=== PATIENT | male | born 1965 | race Caucasian/White ===

== ENCOUNTER 2016-09-02 20:04 | Emergency (ER) | payer BC, OTHER ==
[~2016-09-02] VITALS: Ht 182.9 cm; Wt 110.0 kg
[~2016-09-02 20:04] MED LIST: LEVO200T PO; LEVO25TA PO; MULT-506 PO; SULF800T23 PO
[2016-09-02 20:24] VITALS: TEMP 36.5; Ht 182.9 cm; Wt 110.0 kg
[2016-09-02] MEDS ORDERED: OMEG10007 PO (20:51)
--- NOTE | 2016-09-02 20:55 | EMERGENCY ROOM VISIT NOTE ---
History First contact with patient: 20:40 Chief Complaint: OTHER COMPLAINT Stated Complaint: TORN HERNANDEZ - TINGLING IN FINGERS History of Present Illness The patient is a 51 year old male who presents to the Emergency Room via private vehicle with complaints of "torn hernandez-tingling in fingers". The patient states that 1 hour prior to arrival, he was bench pressing on the [employer] machine while at [employer]. He states that he was pressing up on the weight bar when he developed a burning in his left anterior chest that radiated into his left arm. He states that it hurts to press with the left arm now. He states that he recently had a stress test, which was excellent and denies any chest pain, shortness of breath or heart history at this time. He rates the anterior left chest pain as a 6/10. Review of Systems A complete 6-point Review of Systems was discussed with the patient, with pertinent positives and negatives listed in the History of Present Illness. All remaining Review of Systems questions can be considered negative unless otherwise specified. Past Medical/Surgical History No pertinent past medical history at this time. Family History No pertinent Family history at this time. Social History Smoking Status: Never Smoker Drug Use: none Occupation Status: employed Current/Historical Medications Scheduled Fish Oil (Quantico-3), 2,400 MG PO QAM Levothyroxine Sodium (Synthroid), 25 MCG PO DAILY Levothyroxine Sodium (Synthroid), 200 MCG PO DAILY Multivitamin (Multivitamin), 1 TAB PO DAILY Allergies Coded Allergies: No Known Allergies (Unverified , 09/02/16) Physical Exam Vital Signs Date Time Temp Pulse Resp B/P Pulse Ox O2 Delivery O2 Flow Rate FiO2 09/02/16 21:17 91 18 158/107 97 Room Air 09/02/16 20:24 36.5 91 20 142/93 95 Room Air Physical Exam VITAL SIGNS - Vital signs and nursing notes were reviewed. Patient is afebrile , slightly hypertensive at 142/93, nontoxic tachycardic and is saturating well on room air 95%. GENERAL 51 -year-old male appearing his stated age who is in no acute distress. Communicates well with provider and answers questions appropriately. SKIN - Without rashes. No breaks in the integument. There is evidence of a palpable lump in the left anterior chest overlying the pectoralis major. HEAD - NC/AT. LUNGS - Chest wall symmetric without accessory muscle use, intercostals retractions, or central cyanosis. Normal vesicular breath sounds CTA B/L. No wheezes, rales, or rhonchi appreciated. CARDIAC - RRR with S1/S2. No murmur, rubs, or gallops appreciated. MUSCULOSKELETAL: There is tenderness to palpation overlying the left anterior chest over the location of the pectoralis major. The sternal head insertion location of the pectoralis major at the bicipital groove of the humerus does appear to be detached upon physical examination, with tenderness pinpoint dislocation. With the patient reacting the bench press against my resistance, there is evidence of muscle disruption at the superior lateral most portion of the pectoralis major at its insertion point. There is exquisite tenderness upon this. EXTREMITIES - No clubbing or peripheral cyanosis. No pretibial edema present. +3 /5 pulse in the left upper extremity. +5/5 strength noted in UE/LE bilaterally. NEUROLOGIC - Cranial nerves II through XII grossly intact. No neurologic deficits appreciated in the left upper extremity. Medical Decision & Procedures Medical Decision Patient was seen and evaluated as above. After obtaining a thorough history and physical examination I was initially concerned for heart conditions, however the patient declined a heart workup stated he knows this is not his heart, and is concerned he may have torn his pectoralis major muscle. After the subjective portion of the examination, objectively I was able to see that there was a disruption of the pectoralis major, particularly at the insertion at the location of the humerus. When the patient flex the pectoralis major there was evidence of asymmetry with comparison to the right. There was also a palpable bump/mass in the left anterior chest that fits with the diagnosis of a partially torn or torn pectoralis major. I do not feel any imaging would be beneficial and this was discussed with the patient was also in agreement. He was informed that it is best to place him in a sling at this time to help with the left arm to help calm down the area as well as to use ice over the area. He declined any pain medication. He was provided the number for orthopedic surgeon to follow-up with. He was educated upon worrisome symptoms which to return, he had questions answered prior to discharge, and was discharged home in good condition. I do not suspect any cardiac abnormality, and the patient also declined any workup respectively. In the evaluation and treatment of this patient the following differential diagnoses were entertained: DC, PE, pectoralis major tear, muscle strain, pectoralis major detachment, among others. Impression Primary Impression: pectoralis muscle injury Departure Information Dispostion Home / Self-Care Condition GOOD Referrals Ty Mendiola M.D. (PCP) Truong Sainz, DO Patient Instructions My [facility] Additional Instructions You have been treated in the Emergency Department for Shoulder Pain/left pectoralis muscle injury For pain control, you can use the following [id number] medicines (if >12 yo): - Regular strength (325mg/tab) Tylenol (acetaminophen) 2 tabs every 4-6 hours as needed. Do not exceed 12 tablets in a 24 hour period. Avoid taking more than 4 grams (4000 mg) of Tylenol per day. This includes any other sources of acetaminophen you may take on a regular basis. - Regular strength (200 mg/tab) Advil (ibuprofen) 1-2 tabs every 4-6 hours as needed. Do not exceed a dose of 3200 mg per day. If this is a recent injury (<24 hrs), ice can be applied to the area of pain for the first 3 days to help decrease pain and inflammation. You have been provided the number for an Orthopaedic Surgeon. You should call this number as soon as possible to establish a follow-up visit from today's Emergency Department visit. Keep the shoulder brace/sling in place until evaluated by Orthopedics. Continue to perform range of motion exercises several times per day to help prevent the development of a "frozen shoulder". Please refrain from heavy lifting of the left upper extremity until cleared by orthopedics. Return to the Emergency Department if your current symptoms worsen despite treatment course outlined above, or if you develop any of the following symptoms : intractable pain despite aforementioned treatment course or new onset of numbness or tingling of the arm.
[2016-09-02 21:17] VITALS: BP 158/107; PULSE 91; O2SAT 97
[2016-09-12] MEDS ORDERED: OXYC-57 PO (08:40)
[2016-09-12] MEDS ORDERED: KETO10TA PO (08:40)
== END 2016-09-02 21:18 | disposition home or self-care (01) ==
LOC: C.EDB 20:07 → C.EDD 21:18
DX: S29.001A Unspecified injury of muscle and tendon of front wall of thorax, initial encounter (principal); X58.XXXA Exposure to other specified factors, initial encounter

== ENCOUNTER → 2016-09-05 | Outpatient (CLI) | payer OTHER ==
[~2016-09-05] MED LIST changes: +KETO10TA PO; +OMEG10007 PO; +OXYC-57 PO; -SULF800T23 PO
--- NOTE | 2016-09-06 13:28 | DIAGNOSTIC IMAGING REPORT ---
MRI OF THE LEFT SHOULDER; MRI OF THE CHEST CLINICAL HISTORY: Left shoulder pain. Clinical concern for pectoralis muscle tear. COMPARISON STUDY: No priors. TECHNIQUE: MRI of the left shoulder was performed utilizing various T1 and T2 weighted sequences in the axial, sagittal, coronal planes. IV contrast was not administered for this examination. MRI of the left chest wall was also performed to assess the pectoralis muscle. Note that interpretation is suboptimal without plain film correlate. FINDINGS: Rotator cuff: The supraspinatus and intraspinous tendons are preserved. The teres minor and subscapularis tendons are intact. There is no subacromial or subdeltoid bursal fluid. Mild productive change is seen at the acromioclavicular joint. Biceps tendon: The long head of the biceps tendon is normal in signal intensity and located within the bicipital groove. The anchor is maintained. Labrum: Grossly intact. Pectoralis tendon: There is a full-thickness tear through the mid to distal left pectoralis tendon with approximately 4.5 cm of musculotendinous retraction. There is trace surrounding hemorrhage as well intramuscular edema/grade 2 strain of the left pectoralis. A few fibers of the clavicular head tendon may remain intact. Shoulder joint: There is trace joint effusion. The articular cartilage over the glenoid is well maintained. Mild arthritic change is seen in the anterior glenoid. There is no MRI evidence of fracture. Musculature and soft tissues: The musculature of the shoulder is normal in bulk and signal intensity. No atrophy is seen. IMPRESSION: 1. There is full-thickness rupture of the mid to distal left pectoralis tendon with musculotendinous retraction, trace surrounding hemorrhage, and intramuscular edema/strain as detailed above. 2. The rotator cuff is intact. 3. Mild arthritic change is noted in the anterior glenoid. Electronically signed by: Glen Ramey M.D. 09/06/2016 1:27 PM Dictated Date/Time: 09/05/2016 5:15 PM
== END | disposition home or self-care (01) ==
LOC: C.MRIBC 15:49
PROVIDERS: ATTEND Orthopaedic Surgery
DX: M25.512 Pain in left shoulder (principal)

== ENCOUNTER → 2016-09-09 | Outpatient (CLI) | payer OTHER ==
[2016-09-09 13:17] LABS: BASO % 0.4 %; BASO ABS # 0.03 K/uL (0-0.2); COMPLETE YES; HEMATOCRIT 48.8 % (42-52); IG% 0.3 %; LYMPH % 22.8 %; LYMPH ABS # 1.73 K/uL (1.2-3.4); MEAN CELL VOLUME 89.9 fL (80-100); MEAN CORPUSCULAR HEMOGLOBIN 32.8 pg (25-34); MEAN CORPUSCULAR HGB CONC 36.5 g/dl (32-36); MEAN PLATELET VOLUME 10.2 fL (7.4-10.4); MONO % 8.6 %; NEUT % 64.9 %; PLATELET COUNT 283 K/uL (130-400); RED BLOOD COUNT 5.43 M/uL (4.7-6.1); WHITE BLOOD COUNT 7.59 K/uL (4.8-10.8)
[2016-09-09 14:00] LABS: BLOOD UREA NITROGEN 13 mg/dl (7-18); BUN/CREATININE RATIO 13.6 (10-20); CARBON DIOXIDE 29 mmol/L (21-32); CHLORIDE 103 mmol/L (98-107); CREATININE 0.96 mg/dl (0.60-1.40); GLUCOSE 97 mg/dl (70-99); POTASSIUM 4.3 mmol/L (3.5-5.1); SODIUM 139 mmol/L (136-145)
== END | disposition home or self-care (01) ==
LOC: C.LABBC 10:49
PROVIDERS: ATTEND Orthopaedic Surgery
DX: S29.011A Strain of muscle and tendon of front wall of thorax, initial encounter (principal); X58.XXXA Exposure to other specified factors, initial encounter

== ENCOUNTER → 2016-09-12 | Day surgery (SDC) | payer OTHER ==
[2016-09-10 15:19] VITALS: Ht 182.9 cm; Wt 109.1 kg
[~2016-09-12] VITALS: Ht 182.9 cm; Wt 109.1 kg
[~2016-09-12] MED LIST changes: +BUPIVACAINE/EPINEPHRINE 0.25% 1:200,000 30 ML VIAL ONE; +CEFAZOLIN 2000 MG/60 ML D5W IV SCH; +DEXAMETHASONE SOD INJ 4 MG/ML VIAL ONE; +DiphenhydrAMINE HCL 50 MG/ML VIAL IV PRN; +EpHEDrine SULFATE 50MG/5ML SYR ONE; +FENTANYL CITRATE INJ 50 MCG/1 ML 2 ML VIAL ONE; +GLYCOPYRROLATE INJ 0.2 MG/ML VIAL ONE; +HYDROmorphone INJ 0.5 MG/0.5 ML SYR ONE; +HYDROmorphone INJ 1 MG/ML SYR IV PRN; +KETOROLAC TROMETHAMINE 30 MG/ML VIAL IV. PRN; +KETOROLAC TROMETHAMINE 30 MG/ML VIAL ONE; +LACTATED RINGER'S 1000ML 1,000 ML IV PRN; +LACTATED RINGER'S 1000ML 1,000 ML IV SCH; +LIDOCAINE HCL 2% 2 ML VIAL (20MG/ML) ONE; +METOCLOPRAMIDE HCL INJ 5 MG/ML 2 ML VIAL IV PRN; +MIDAZOLAM HCL 1 MG/ML 2ML VIAL ONE; +NEOSTIGMINE METHYLSULFATE 5 MG/5 ML SYR ONE; +ONDANSETRON INJ 2 MG/ML 2 ML VIAL IV PRN; +ONDANSETRON INJ 2 MG/ML 2 ML VIAL ONE; +OXYCODONE/ACETAMINOPHEN 5-325 TAB PO PRN; +PROPOFOL IV EMULSION 10 MG/ML 20 ML VIAL IV ONE; +ROCURONIUM BROMIDE 10 MG/ML 5 ML VIAL ONE; +SODIUM CHLORIDE 0.9% 1000ML 1,000 ML IV SCH
--- NOTE | 2016-09-12 06:43 | History & Physical Bridge - SC ---
H&P Re-Evaluation Bridge Note: I have examined the patient, reviewed the History & Physical and in the interval since the performance of the History & Physical I have noted the following changes of clinical significance: No changes noted
--- NOTE | 2016-09-12 08:38 | [facility] Post Operative Brief Note ---
Immediate Operative Summary Operative Date Sep 12, 2016. Pre-Operative Diagnosis Left Pectoralis Major Muscle Tear Post-Operative Diagnosis Same Procedure(s) Performed Left Pectoralis Major Muscle Tear Repair Surgeon Dr. Shaw Keeler Polygraph Operator Surgeon(s) Juan Miguel Mace PA-C Estimated Blood Loss 10 ML Findings as above Specimens None Complication(s) None Disposition Recovery Room / PACU
--- NOTE | 2016-09-12 08:42 | Discharge Instructions-SurgCtr ---
Discharge Instructions Date of Service Sep 12, 2016. Visit Reason for Visit: Left Pectoralis Major Muscle Tear Discharge Discharge Diagnosis / Problem: SAME ABOVE Discharge Goals Goal(s): Decrease discomfort, Improve function, Increase independence Activity Recommendations Activity Limitations: as noted below Lifting Limitations: until after follow-up appointment May Resume Sexual Activity: after follow-up appointment Anesthesia . Post Anesthesia Instructions: If you have had General Anesthesia or IV Sedation: * Do not drive today. * Resume driving when surgeon permits. * Do not make important decisions or sign legal documents today. * Call surgeon for: 1. Temperature elevations greater than 101 degrees F. 2. Uncontrollable pain. 3. Excessive bleeding. 4. Persistent nausea and vomiting. 5. Medication intolerance (nausea, vomiting or rash). * For nausea and vomiting use only clear liquids such as: tea, soda, bouillon until nausea subsides, then gradually increase diet as tolerated. * If you have any concerns or questions, call your surgeon's office. If physician is unavailable and it is an emergency, call 911 or go to the nearest emergency room. . Instructions / Follow-Up Instructions / Follow-Up MEDICATIONS: * Resume previous medications unless instructed otherwise by your surgeon. * Always take pain medication on a full stomach or with food to avoid upset stomach. * Do not drink alcohol or drive while taking narcotics. * Ibuprofen or Tylenol may be taken if narcotic not needed. SPECIAL CARE INSTRUCTIONS: __ None _X_ Keep extremity elevated and iced x 48 hours; apply ice 20-30 minutes 8-10 times/day. May remove at night. _X_ Sling (MAY REMOVE AFTER 48 HOURS ONLY TO SHOWER) _X_24 hrs/day __ Remove at night __ Shoulder Immobilizer __ 24 hrs/day __ Remove at night _X_ Dressing __ Maintain until seen in office, may shower with plastic over site _X_ Remove dressings in 24-48 hours and then may shower __ Cover incisions with band-aids after showering __ Do not remove steri-strips ONLY REMOVE THE CLEAR WRAP, AND THE WHITE SPONGES LEAVE THE ADHESIVE COVERING ON THE SKIN UNTIL SEEN IN THE OFFICE FOR FOLLOW UP ( RAQUEL) Call physician if chills or temperature rises above 102 degrees or pain unrelieved by prescribed pain medications at . . Diet Recommendations Home Diet: no limitations Fluid Restriction: None Procedures Procedures Performed: Left Pectoralis Major Muscle Tear Repair Pending Studies Studies pending at discharge: no Work Instructions Return To Work: after follow-up Lifting Limitations: NO LIFTING WITH LEFT ARM Medical Emergencies . Who to Call and When: Medical Emergencies: If at any time you feel your situation is an emergency, please call 911 immediately. . Non-Emergent Contact Non-Emergency issues call your: Primary Care Provider Call Non-Emergent contact if: you have a fever, temperature is above 101.5 . . "Provider Documentation" section prepared by Jason Mace.
--- NOTE | 2016-09-12 08:49 | OPERATIVE REPORT ---
DATE OF OPERATION: 09/12/2016 PREOPERATIVE DIAGNOSIS: Left pectoralis major rupture. POSTOPERATIVE DIAGNOSIS: Same. PROCEDURE: Open left pectoralis major repair. SURGEON: Dr. Max Shaw. RETAIL DEPARTMENT MANAGER: Matt Mace PA-C, whose assistance was necessary for retraction and helping position the arm. ANESTHESIA: General with a left interscalene nerve block. COMPLICATIONS: None. CONDITION: Stable to PACU. INDICATIONS: Mook is a pleasant 51-year-old male who presented to my office with acute left pectoralis major rupture after bench pressing. MRI confirmed the tear directly off the humeral shaft. He elected to undergo open pec major repair. PROCEDURE: On 09/12/2016 he arrived at [facility] for the above procedure. He was seen in the preoperative holding area and the operative extremity was identified and signed. He was given a preoperative antibiotic, taken back to the operating room, laid on the table in supine position and put under general anesthesia. He was then put into the beachchair position. The left shoulder was prepped and draped in sterile fashion. Time-out was done and the patient and operative extremity was properly identified. Axillary incision was made. Dissection was taken down through the fascia and a large seroma was evacuated. The sternal head of the pec major was identified. The clavicular head was still intact. The sternal head was then stitched in a Krackow fashion using three #5 FiberWire sutures and 3 FiberTapes. The FiberTape and a FiberWire from each of 3 entry points were passed through an Arthrex Pec Button. The insertion site of the sternal head of the pec major was prepared with a bur to produce bleeding cortical bone. Care was taken not to disrupt the long head of the biceps tendon. Three drill holes were made at the insertion site and the pec buttons were passed through the drill holes and flipped. A tension slide technique was used to deliver the sternal head of the pec major down to its insertion site. All sutures were then tied. This gave a very nice fixation. I was able to easily get into 30 degrees of external rotation without much tension on the repair. The wound was then irrigated and skin was closed with 3-0 Vicryl and running 3-0 V-Loc suture and a Prineo dressing. He was then placed in a soft dressing and a regular arm sling. He was then extubated, transferred to a [facility] and taken to the postanesthesia care unit in stable condition. He tolerated the procedure well. I attest to the content of the Intraoperative Record and any orders documented therein. Any exceptio ns are noted below.
[2016-09-12] MEDS: FENTANYL CITRATE INJ 50 MCG/1 ML 2 ML VIAL IV PRN ×2 (08:53→08:58)
[2016-09-12 09:57] VITALS: TEMP 37.1
--- NOTE | 2016-09-12 10:16 | Anesthesia Progress Nt - [facility] ---
Anesthesia Post Op Note Date & Time Sep 12, 2016 at 10:16 Vital Signs Pain Intensity: 5.0 Vital Signs Past 12 Hours Date Time Temp Pulse Resp B/P Pulse Ox O2 Delivery O2 Flow Rate FiO2 09/12/16 09:57 37.1 75 16 149/84 94 Room Air 09/12/16 09:47 63 20 96 09/12/16 09:47 64 20 09/12/16 09:46 36.9 80 16 120/81 96 Room Air 09/12/16 09:45 120/81 09/12/16 09:42 83 23 95 09/12/16 09:42 84 23 09/12/16 09:40 140/85 09/12/16 09:37 63 16 97 09/12/16 09:37 66 16 09/12/16 09:35 124/75 09/12/16 09:32 64 18 09/12/16 09:32 63 18 97 09/12/16 09:30 124/76 09/12/16 09:27 78 20 09/12/16 09:27 77 20 98 09/12/16 09:25 122/82 09/12/16 09:22 70 20 09/12/16 09:22 71 20 96 09/12/16 09:20 131/83 09/12/16 09:17 79 21 09/12/16 09:17 81 21 97 09/12/16 09:15 137/85 09/12/16 09:12 76 20 09/12/16 09:12 77 20 97 09/12/16 09:10 138/83 09/12/16 09:07 81 19 09/12/16 09:07 83 19 100 09/12/16 09:05 134/88 09/12/16 09:02 64 21 98 09/12/16 09:02 65 21 09/12/16 09:00 141/83 09/12/16 08:57 68 16 09/12/16 08:57 68 16 95 09/12/16 08:55 130/80 09/12/16 08:52 71 22 09/12/16 08:52 70 22 95 09/12/16 08:50 118/79 09/12/16 08:47 74 16 97 09/12/16 08:47 74 16 09/12/16 08:45 122/65 09/12/16 08:42 78 09/12/16 08:42 78 120/72 95 09/12/16 08:42 36.5 78 16 120/79 98 Mask 6 09/12/16 06:25 36.5 77 18 147/105 96 Room Air Notes Mental Status: alert / awake / arousable, participated in evaluation Pt Amnestic to Procedure: Yes Nausea / Vomiting: adequately controlled Pain: adequately controlled Airway Patency, RR, SpO2: stable & adequate BP & HR: stable & adequate Hydration State: stable & adequate Anesthetic Complications: no major complications apparent Pt doing well.
[2016-09-12 10:19] VITALS: BP 143/77; PULSE 64; O2SAT 93
== END | disposition home or self-care (01) ==
LOC: X.SURG 06:04
PROVIDERS: ATTEND Orthopaedic Surgery
DX: S43.492A Other sprain of left shoulder joint, initial encounter (principal); X50.9XXA Other and unspecified overexertion or strenuous movements or postures, initial encounter; Y93.B9 Activity, other involving muscle strengthening exercises

== ENCOUNTER → 2017-03-10 | Outpatient (CLI) | payer OTHER ==
[~2017-03-10] MED LIST changes: -BUPIVACAINE/EPINEPHRINE 0.25% 1:200,000 30 ML VIAL ONE; -CEFAZOLIN 2000 MG/60 ML D5W IV SCH; -DEXAMETHASONE SOD INJ 4 MG/ML VIAL ONE; -DiphenhydrAMINE HCL 50 MG/ML VIAL IV PRN; -EpHEDrine SULFATE 50MG/5ML SYR ONE; -FENTANYL CITRATE INJ 50 MCG/1 ML 2 ML VIAL ONE; -GLYCOPYRROLATE INJ 0.2 MG/ML VIAL ONE; -HYDROmorphone INJ 0.5 MG/0.5 ML SYR ONE; -HYDROmorphone INJ 1 MG/ML SYR IV PRN; -KETOROLAC TROMETHAMINE 30 MG/ML VIAL IV. PRN; -KETOROLAC TROMETHAMINE 30 MG/ML VIAL ONE; -LACTATED RINGER'S 1000ML 1,000 ML IV PRN; -LACTATED RINGER'S 1000ML 1,000 ML IV SCH; -LIDOCAINE HCL 2% 2 ML VIAL (20MG/ML) ONE; -METOCLOPRAMIDE HCL INJ 5 MG/ML 2 ML VIAL IV PRN; -MIDAZOLAM HCL 1 MG/ML 2ML VIAL ONE; -NEOSTIGMINE METHYLSULFATE 5 MG/5 ML SYR ONE; -ONDANSETRON INJ 2 MG/ML 2 ML VIAL IV PRN; -ONDANSETRON INJ 2 MG/ML 2 ML VIAL ONE; -OXYCODONE/ACETAMINOPHEN 5-325 TAB PO PRN; -PROPOFOL IV EMULSION 10 MG/ML 20 ML VIAL IV ONE; -ROCURONIUM BROMIDE 10 MG/ML 5 ML VIAL ONE; -SODIUM CHLORIDE 0.9% 1000ML 1,000 ML IV SCH
[2017-03-10 12:33] LABS: ALT/SGPT 48 U/L (12-78); AST/SGOT 27 U/L (15-37); BLOOD UREA NITROGEN 19 mg/dl (7-18); BUN/CREATININE RATIO 16.9 (10-20); CALCIUM 8.8 mg/dl (8.5-10.1); CARBON DIOXIDE 27 mmol/L (21-32); CHLORIDE 106 mmol/L (98-107); CHOLESTEROL 245 mg/dl (0-200); GLUCOSE 95 mg/dl (70-99); SODIUM 140 mmol/L (136-145)
[2017-03-10 12:43] LABS: ALB/GLOB RATIO 1.1 (0.9-2)
[2017-03-10 12:44] LABS: ALKALINE PHOSPHATASE 68 U/L (45-117); CHOLESTEROL/HDL RATIO 7.7; HDL CHOLESTEROL 32 mg/dl; LDL CHOLESTEROL CALCULATED 159 mg/dl; TRIGLYCERIDES 269 mg/dl (0-150); VERY LOW DENSITY LIPOPROT CALC 54 mg/dl
== END | disposition home or self-care (01) ==
LOC: C.LABBFT 07:18
PROVIDERS: ATTEND Physician Assistant Medical
DX: I10 Essential (primary) hypertension (principal); E03.9 Hypothyroidism, unspecified

== ENCOUNTER 2020-04-22 09:59 | Observation (INO) ==
[2020-04-22] MEDS ORDERED: SODIUM CHLORIDE 0.9% 1000ML 500 ML IV ONE (10:12)
[2020-04-22] MEDS ORDERED: OPTIRAY 320 125ml IV ONE (10:17)
[2020-04-22 10:22] LABS: Basophils # (auto) 0.03 K/uL (0-0.2); Basophils % (auto) 0.6 %; Eosinophils # (auto) 0.28 K/uL (0-0.5); Eosinophils % (auto) 5.2 %; Hematocrit (blood only) 44.7 % (42-52); Hemoglobin 16.1 g/dL (14.0-18.0); Immature Granulocytes # (auto) 0.01 K/uL (0.00-0.02); Immature Granulocytes % (auto) 0.2 %; Lymphocytes # (auto) 2.09 K/uL (1.2-3.4); Lymphocytes % (auto) 38.9 %; Mean Corpuscular Hemoglobin 32.9 pg (25-34); Mean Corpuscular Volume 91.2 fL (80-100); Mean Platelet Volume 10.1 fL (7.4-10.4); Monocytes # (auto) 0.34 K/uL (0.11-0.59); Monocytes % (auto) 6.3 %; Neutrophils # (auto) 2.62 K/uL (1.4-6.5); Neutrophils % (auto) 48.8 %; Platelet Count 236 K/uL (130-400); RDW Coefficient of Variation 12.1 % (11.5-14.5); RDW Standard Deviation 40.5 fL (36.4-46.3); White Blood Count 5.37 K/uL (4.8-10.8)
--- NOTE | 2020-04-22 10:22 | Emergency Department Note ---
Impression & Plan Amnesia, Brain TIA, Transient global amnesia ED Provider Note NAME: RADHA CANSECO AGE: 54 SEX: M : 1965 ARRIVES VIA: Walk-In INFORMANT: [Patient] ED PROVIDER(S): [Glen Martinez MD] First patient contact was at 10:07. CHIEF COMPLAINT: Neuro symptoms HISTORY OF PRESENT ILLNESS: The patient is a 54-year-old male states that 1 hour ago after having intercourse with his girlfriend, he lost his memory. He could not remember things that had happened in the last 24 hours. There was no headache. As per his girlfriend, his symptoms lasted 15 to 20 minutes. The patient states his memory now seems intact and he can recall events from the last [address] here, for a very brief time, his left hand was numb. That no longer is the case. No weakness in 1 arm or 1 leg. He has no chest pain or shortness of breath. No difficulty with his gait or speech. The patient states that last evening, he had a mild headache that he thought was from dehydration. This resolved with fluids and was not present when he woke up this morning. First part of his morning was normal, he had breakfast without difficulty. He was having a normal day. REVIEW OF SYSTEMS: See HPI for pertinent positives and negatives. A total of ten systems were reviewed and were otherwise negative. PMHx/PSHx: See Below SOCIAL HISTORY: See Below. PHYSICAL EXAM: GENERAL: Patient is in no acute distress. Slightly anxious. HEENT: No acute trauma, normocephalic atraumatic, mucous membranes moist, no nasal congestion, no scleral icterus. NECK: No stridor, no adenopathy, no meningismus, trachea is midline. LUNGS: Clear to auscultation bilaterally, no wheeze, no rhonchi, breath sounds equal. HEART: Without murmurs gallops or rubs, regular rate and rhythm. ABDOMEN: Soft, nontender, bowel sounds positive, no hernias, no peritonitis. EXTREMITIES: No cyanosis or edema, full range of motion of all the joints without pain or difficulty, no signs for acute trauma. NEUROLOGIC: Oriented x 3, no acute motor or sensory deficits, no focal weakness. No cerebellar deficits, no speech slur or facial droop, no extremity drift. SKIN: No rash, no jaundice, no diaphoresis. DIFFERENTIAL DIAGNOSIS: Infection, dehydration, metabolic abnormality, hypo/hyperglycemia, intracranial bleeding, stroke or TIA, transient global amnesia, electrolyte disturbance, anemia, hypoxia, cardiac sources, intracerebral event, toxicologic, neurologic, as well as other pathologies. EMERGENCY DEPARTMENT COURSE/PROCEDURES: ECG: Indication was possible stroke. The ECG shows a normal sinus rhythm with a rate of 89. There is no ST elevation, no PVCs. The QTc is 442. Continuous Cardiac Monitoring: An order was placed for continuous cardiac monitoring. The monitor shows a rate of 86 with normal sinus rhythm. Critical Care Note: I have personally spent 42 minutes of critical care time in the direct management of this patient. This includes bedside care, interpretation of diagnostic studies, and testing, discussion with consultants, patient, and family members, and other required patient management activities. This 42 minutes is in excess of all separately billable procedures. MEDICAL DECISION MAKING: There is no leukocytosis or concerning anemia. There is a normal platelet count. No coagulopathy. No significant electrolyte abnormality or kidney failure. There were a few subtle liver enzyme elevations. ECG showed a sinus r hythm, no acute ischemia. Cardiac enzyme testing x1 is not consistent with acute cardiac injury. Brain CT shows no acute bleed or mass-effect. CT angiography of the brain and neck did not show stenosis or clot. There was no aneurysm. On my exam, there was no facial droop or speech slur, no focal neurologic deficit. The patient was asymptomatic at the time of my evaluation. The patient received a 500 cc saline bolus, he has remained asymptomatic during his ED stay. Patient was aggressively managed given his presentation. A stroke alert was called. I did talk to the [facility] neurologist. As the patient was back to baseline, they did not feel a need to see the patient for an assessment. The patient certainly may have had a TIA, transient global amnesia is also a consideration. At this point, further work-up in the hospital, further observation is warranted. The patient basically needs a complete stroke work- up. I spoke to the patient, I talked with case management, the on-call hospitalist was consulted. Past Med/Surg History Medical History Hyperlipidemia Hypertension Hypothyroidism Kidney stones Osteoarthritis Surgical History History of tonsillectomy Family History Son Crohn's disease Sister Hypertension Grandmother Myocardial infarction Denies family history of Ovarian cancer Prostate cancer Breast cancer Colorectal cancer Social History Smoking Status: Never smoker Second Hand Exposure: No; Hx Alcohol Use: No Hx Substance Use: No Preferred Language: Kuwaiti Communication Ability: Effective Visual Impairment: No Limitations Hearing Ability: Normal Superintendent Communications Required: No Beliefs That Will Affect Care: None marital status: Current Living Situation: Family and Significant Other current occupational status: employed current occupation: Works at [employer] Feels Safe at Home: Yes Childhood Exposure to Second-Hand Smoke: No caffeine: Yes during the past year weight has: remained stable Dental Care, Regularly: Yes Physical Activity Frequency: Daily Seatbelt Use: always Sunscreen Use: No Assistive Devices: None Allergies Allergies Allergy/AdvReac Type Severity Reaction Status Date / Time No Known Allergies Allergy Verified 04/22/20 11:03 Home Meds Home Medications Medication Instructions Recorded Confirmed multivitamin 1 tab PO DAILY 12/08/18 04/22/20 amlodipine 2.5 mg PO DAILY 04/22/20 04/22/20 pantoprazole 40 mg PO DAILY 04/22/20 04/22/20 Previous Rx's Medication Instructions Recorded betamethasone, augmented 0.05 % 1 appln TOP BID PRN #50 gm 12/06/19 topical ointment escitalopram oxalate 10 mg tablet 10 mg PO DAILY #90 tab 02/16/20 lisinopril 20 mg tablet 20 mg PO QAM #90 tab 02/16/20 atorvastatin 40 mg tablet 40 mg PO HS #90 tab 02/22/20 levothyroxine 200 mcg tablet 200 mcg PO DAILY #90 tab 02/22/20 Results & Data (ED) Vital Signs Vital Signs - 24 hr 04/22/20 10:02 04/22/20 10:31 Temperature 36.7 C Temperature Source Oral Pulse Rate 102 H 88 Pulse Rate from SpO2 Sensor 87 Respiratory Rate 20 Respiratory Effort / Characteristics Non-Labored Respiratory Depth Normal Blood Pressure 188/101 H 144/103 H Blood Pressure Mean 130 110 Pulse Oximetry 96 96 Sepsis Recent Fever Within 48 Hours No Sepsis New/Unexplained Change in Mental Status N/A Sepsis Action Taken by Nursing No Action Required Home Medications Current Medication List: was personally reviewed by me Laboratory Data Attestation: I reviewed the patient's lab results. Result diagrams: 04/22/20 10:10 04/22/20 10:10 Lab Results 04/22/20 04/22/20 04/22/20 Range/Units 10:10 10:10 10:10 WBC 5.37 (4.8-10.8) K/uL RBC 4.90 (4.7-6.1) M/uL Hgb 16.1 (14.0-18.0) g/dL POC Hgb (14.0-18.0) g/dl Hct 44.7 (42-52) % POC Hct (42-52) % MCV 91.2 (80-100) fL MCH 32.9 (25-34) pg MCHC 36.0 (32-36) g/dL RDW Std Deviation 40.5 (36.4-46.3) fL RDW Coeff of Itz 12.1 (11.5-14.5) % Plt Count 236 (130-400) K/uL MPV 10.1 (7.4-10.4) fL Immature Gran % (Auto) 0.2 % Neut % (Auto) 48.8 % Lymph % (Auto) 38.9 % Putnam % (Auto) 6.3 % Eos % (Auto) 5.2 % Baso % (Auto) 0.6 % Neut # (Auto) 2.62 (1.4-6.5) K/uL Lymph # (Auto) 2.09 (1.2-3.4) K/uL Putnam # (Auto) 0.34 (0.11-0.59) K/uL Eos # (Auto) 0.28 (0-0.5) K/uL Baso # (Auto) 0.03 (0-0.2) K/uL Immature Gran # (Auto) 0.01 (0.00-0.02) K/uL PT 10.7 (9.0-12.0) Seconds INR 1.0 (0.9-1.1) APTT 25.6 (21.0-31.0) Seconds PTT Ratio 0.9 POC Sodium (135-144) mmol/L Sodium 141 (136-145) mmol/L POC Potassium (3.3-5.0) mmol/L Potassium 4.2 (3.5-5.1) mmol/L POC Chloride (101-112) mmol/L Chloride 109 H (98-107) mmol/L Carbon Dioxide 27 (21-32) mmol/L POC Total CO2 (24-31) mmol/L Anion Gap 5.0 (3-11) POC Anion Gap (16-25) mmol/L POC BUN (7-18) mg/dl BUN 17 (7-18) mg/dl Creatinine 1.29 (0.6-1.4) mg/dl POC Creatinine (0.6-1.3) mg/dl Est Cr Clr Drug Dosing 89.7 ml/min Est GFR ( Amer) 73.4 Est GFR (Non-Af Amer) 63.3 BUN/Creatinine Ratio 12.9 (10-20) Glucose 156 H (70-99) mg/dl POC Glucose (other) (70-99) mg/dl Calcium 8.9 (8.5-10.1) mg/dl POC Ioniz Calcium Quinten (1.12-1.32) mmol/l Magnesium 1.9 (1.8-2.4) mg/dl Total Bilirubin 1.4 H (0.2-1) mg/dl AST 48 H (15-37) U/L ALT 127 H (12-78) U/L Alkaline Phosphatase 85 (45-117) U/L Troponin I < 0.015 (0-0.045) ng/ml Total Protein 7.7 (6.4-8.2) gm/dl Albumin 3.8 (3.4-5.0) gm/dl Globulin 3.9 (2.5-4.0) gm/dl Albumin/Globulin Ratio 1.0 (0.9-2) 04/22/20 Range/Units 10:15 WBC (4.8-10.8) K/uL RBC (4.7-6.1) M/uL Hgb (14.0-18.0) g/dL POC Hgb 15.3 (14.0-18.0) g/dl Hct (42-52) % POC Hct 45 (42-52) % MCV (80-100) fL MCH (25-34) pg MCHC (32-36) g/dL RDW Std Deviation (36.4-46.3) fL RDW Coeff of Itz (11.5-14.5) % Plt Count (130-400) K/uL MPV (7.4-10.4) fL Immature Gran % (Auto) % Neut % (Auto) % Lymph % (Auto) % Putnam % (Auto) % Eos % (Auto) % Baso % (Auto) % Neut # (Auto) (1.4-6.5) K/uL Lymph # (Auto) (1.2-3.4) K/uL Putnam # (Auto) (0.11-0.59) K/uL Eos # (Auto) (0-0.5) K/uL Baso # (Auto) (0-0.2) K/uL Immature Gran # (Auto) (0.00-0.02) K/uL PT (9.0-12.0) Seconds INR (0.9-1.1) APTT (21.0-31.0) Seconds PTT Ratio POC Sodium 141 (135-144) mmol/L Sodium (136-145) mmol/L POC Potassium 4.3 (3.3-5.0) mmol/L Potassium (3.5-5.1) mmol/L POC Chloride 105 (101-112) mmol/L Chloride (98-107) mmol/L Carbon Dioxide (21-32) mmol/L POC Total CO2 24 (24-31) mmol/L Anion Gap (3-11) POC Anion Gap 17.0 (16-25) mmol/L POC BUN 18 (7-18) mg/dl BUN (7-18) mg/dl Creatinine (0.6-1.4) mg/dl POC Creatinine 1.2 (0.6-1.3) mg/dl Est Cr Clr Drug Dosing ml/min Est GFR ( Amer) Est GFR (Non-Af Amer) BUN/Creatinine Ratio (10-20) Glucose (70-99) mg/dl POC Glucose (other) 158 H (70-99) mg/dl Calcium (8.5-10.1) mg/dl POC Ioniz Calcium Quinten 1.26 (1.12-1.32) mmol/l Magnesium (1.8-2.4) mg/dl Total Bilirubin (0.2-1) mg/dl AST (15-37) U/L ALT (12-78) U/L Alkaline Phosphatase (45-117) U/L Troponin I (0-0.045) ng/ml Total Protein (6.4-8.2) gm/dl Albumin (3.4-5.0) gm/dl Globulin (2.5-4.0) gm/dl Albumin/Globulin Ratio (0.9-2) Administered Medications Discontinued Medications Sodium Chloride (Nss 1000ml) 500 mls @ 999 mls/hr IV .Q31M ONE Stop: 04/22/20 10:42 Last Infusion: 04/22/20 11:02 Dose: 0 mls/hr Documented by: [id number] Admin: 04/22/20 10:30 Dose: 999 mls/hr Documented by: [id number] Ioversol (Optiray 320 125ml) 120 ml IV ONCE ONE Stop: 04/22/20 10:18 Last Admin: 04/22/20 10:17 Dose: 120 ml Documented by: [id number] Imaging Data Radiologist's Impression: CT head/brain wo con CLINICAL HISTORY: stroke LEFT HAND NUMBNESS, HEADACHE. AMNESIA. COMPARISON STUDY: July 13, 2018 TECHNIQUE: Axial CT of the brain is performed from the vertex to the skull base. IV contrast was not administered for this examination. A dose lowering technique was utilized adhering to the principles of ALARA. CT DOSE: FINDINGS: No intra or extra-axial mass lesions are visualized. There is no CT evidence of acute cortical infarction. There is no evidence of midline shift. There is no acute hemorrhage. No calvarial fractures are visualized. There is no evidence of pathologic ventricular dilatation. There is pansinus mucosal thickening IMPRESSION: No acute intracranial findings CT angio neck with con CLINICAL HISTORY: stroke COMPARISON STUDY: No previous studies for comparison. TECHNIQUE: CT angiography was performed from the aortic arch to the skull base. MIP imaging was performed. The patient was scanned in a dynamic helical fashion during intravenous administration of 120 cc of Optiray 320. A dose lowering technique was utilized adhering to the principles of ALARA. CT DOSE: 1395.39 mGy.cm Technique: CT angiogram of the carotid and vertebral arteries was obtained using intravenous contrast and 3-D reconstruction. NASCET criteria was utilized. Findings: The right carotid revealed no evidence of aneurysm and no evidence of dissection. There is no evidence of hemodynamic significant stenosis. The left carotid revealed no evidence of hemodynamic significant stenosis. There is no evidence of aneurysm. There is no evidence of dissection. Note is made of kinking of the left common carotid artery at approximately the C7 level with an approximate 50 percent diameter narrowing. There is no evidence of hemodynamically significant vertebral stenosis. There is no evidence of vertebral dissection. IMPRESSION: 1. No evidence of hemodynamically significant carotid or vertebral artery stenosis. No evidence of dissection. CT angio head w con CLINICAL HISTORY: Strokelike symptoms TECHNIQUE: CT angiography of the head was performed in a dynamic helical fashion during intravenous administration of 120 cc of Optiray 320. MIP imaging was performed. A dose lowering technique was utilized adhering to the principles of ALARA. CT DOSE: COMPARISON STUDY: MR angiography the brain dated 05/03/2015 FINDINGS: There are no lesion suspicious for aneurysm. There are no major intracranial branch occlusions. The dural venous sinuses appear patent. There is paranasal sinus mucosal thickening. IMPRESSION: Normal study. Discharge Plan Visit Data Chief Complaint: Neuro Symptoms/Deficit Stated Complaint: BLANKED OUT FOR ABOUT 15 MINUTES, NO MEMORY ED Provider: Glen Martinze Discharge Problem: Amnesia, Brain TIA, Transient global amnesia Patient Disposition: Admitted As Inpatient Condition: Good Forms Stand Alone Forms: My [facility] Prescriptions Prescriptions: No Action atorvastatin 40 mg tablet 40 mg PO HS Qty: 90 RF: 3 levothyroxine 200 mcg tablet 200 mcg PO DAILY Qty: 90 RF: 3 betamethasone, augmented [Diprolene (augmented)] 0.05 % ointment 1 appln TOP BID PRN (Reason: psoriasis) Qty: 50 RF: 0 escitalopram oxalate 10 mg tablet 10 mg PO DAILY Qty: 90 RF: 3 lisinopril 20 mg tablet 20 mg PO QAM Qty: 90 RF: 3 multivitamin [Daily Multi-Vitamin] tablet 1 tab PO DAILY RF: 0 amlodipine 2.5 mg tablet 2.5 mg PO DAILY RF: 0 pantoprazole 40 mg tablet,delayed release (DR/EC) 40 mg PO DAILY RF: 0 Referrals Referrals: Ty Mendiola III, MD [Primary Care Provider] -
[2020-04-22 10:29] LABS: iSTAT Creatinine 1.2 mg/dl (0.6-1.3); iSTAT Hemoglobin 15.3 g/dl (14.0-18.0); iSTAT Ionized Calcium 1.26 mmol/l (1.12-1.32); iSTAT Potassium 4.3 mmol/L (3.3-5.0)
--- NOTE | 2020-04-22 10:30 | CT Scan Report ---
CT head/brain wo con CLINICAL HISTORY: stroke LEFT HAND NUMBNESS, HEADACHE. AMNESIA. COMPARISON STUDY: July 13, 2018 TECHNIQUE: Axial CT of the brain is performed from the vertex to the skull base. IV contrast was not administered for this examination. A dose lowering technique was utilized adhering to the principles of ALARA. CT DOSE: FINDINGS: No intra or extra-axial mass lesions are visualized. There is no CT evidence of acute cortical infarc tion. There is no evidence of midline shift. There is no acute hemorrhage. No calvarial fractures ar e visualized. There is no evidence of pathologic ventricular dilatation. There is pansinus mucosal thickening IMPRESSION: No acute intracranial findings ACT 112: Negative or not required by law. Electronically signed by: Patric Lazaro M.D. 04/22/2020 10:28 AM
[2020-04-22 10:34] LABS: Partial Thromboplastin Ratio 0.9; Partial Thromboplastin Time 25.6 Seconds (21.0-31.0); Prothrombin Time 10.7 Seconds (9.0-12.0)
--- NOTE | 2020-04-22 10:37 | CT Scan Report ---
CT angio neck with con CLINICAL HISTORY: stroke COMPARISON STUDY: No previous studies for comparison. TECHNIQUE: CT angiography was performed from the aortic arch to the skull base. MIP imaging was perfo rmed. The patient was scanned in a dynamic helical fashion during intravenous administration of 120 c c of Optiray 320. A dose lowering technique was utilized adhering to the principles of ALARA. CT DOSE: 1395.39 mGy.cm Technique: CT angiogram of the carotid and vertebral arteries was obtained using intravenous contrast and 3-D reconstruction. NASCET criteria was utilized. Findings: The right carotid revealed no evidence of aneurysm and no evidence of dissection. There is no evidenc e of hemodynamic significant stenosis. The left carotid revealed no evidence of hemodynamic significant stenosis. There is no evidence of an eurysm. There is no evidence of dissection. Note is made of kinking of the left common carotid artery at approximately the C7 level with an approximate 50 percent diameter narrowing. There is no evidence of hemodynamically significant vertebral stenosis. There is no evidence of verte bral dissection. IMPRESSION: 1. No evidence of hemodynamically significant carotid or vertebral artery stenosis. No evidence of di ssection. ACT 112: Negative or not required by law. Electronically signed by: Patric Lazaro M.D. 04/22/2020 10:35 AM
[2020-04-22 10:42] LABS: Alanine Aminotransferase 127 U/L (12-78); Albumin Level 3.8 gm/dl (3.4-5.0); Aspartate Aminotransferase 48 U/L (15-37); BUN Creatinine Ratio 12.9 (10-20); Blood Urea Nitrogen 17 mg/dl (7-18); Calcium 8.9 mg/dl (8.5-10.1); Carbon Dioxide 27 mmol/L (21-32); Chloride 109 mmol/L (98-107); Creatinine Clr Calc Pharmacy 89.7 ml/min; Est GFR (African American) 73.4; Est GFR (Non-African American) 63.3; Glucose 156 mg/dl (70-99); Magnesium 1.9 mg/dl (1.8-2.4); Potassium 4.2 mmol/L (3.5-5.1); Sodium 141 mmol/L (136-145)
--- NOTE | 2020-04-22 10:42 | CT Scan Report ---
CT angio head w con CLINICAL HISTORY: Strokelike symptoms TECHNIQUE: CT angiography of the head was performed in a dynamic helical fashion during intravenous a dministration of 120 cc of Optiray 320. MIP imaging was performed. A dose lowering technique was util ized adhering to the principles of ALARA. CT DOSE: COMPARISON STUDY: MR angiography the brain dated 05/03/2015 FINDINGS: There are no lesion suspicious for aneurysm. There are no major intracranial branch occlusi ons. The dural venous sinuses appear patent. There is paranasal sinus mucosal thickening. IMPRESSION: Normal study. ACT 112: Negative or not required by law. Electronically signed by: Patric Lazaro M.D. 04/22/2020 10:41 AM
[2020-04-22 10:46] LABS: Alkaline Phosphatase 85 U/L (45-117); Bilirubin,Total 1.4 mg/dl (0.2-1); Globulin 3.9 gm/dl (2.5-4.0); Total Protein 7.7 gm/dl (6.4-8.2); Troponin I < 0.015 ng/ml (0-0.045)
--- NOTE | 2020-04-22 11:20 | History & Physical Report ---
Date of Service April 22, 2020 Assessment & Plan (1) Acute confusion: TIA vs. global transient amnesia. Fully resolved at this time. [facility] tele-stroke recommend admission for further work-up. - MRI brain - Start ASA - On statin - Consult neurology - Get A1c (though A1c was 5.0% in 03/2020) - TTE (2) Hypertension: BP was high in the ED, but coming down at this point. Presently 150/100. - Continue home amlodipine & lisinopril (3) Hyperlipidemia: - Continue high-dose statin (4) Hypothyroidism: TSH was 0.12 on 04/07/2020. He reports he lowered his home dose from 225 mcg to 200 mcg daily. - Continue home levothyroxine 200 mcg - Repeat TSH, though not sure it will have changed dramatically in 1 week. (5) GERD (gastroesophageal reflux disease): - Continue PPI (6) DVT prophylaxis: SCDs - Low DVT risk per admission calculator History of Present Illness Primary Care Provider: Ty Mendiola MD 54yo M w/ hx of HTN and HLD who presents for acute confusion. The patient had a headache last night and thought he was just a bit dehydrated. He drank some water, and it went away. He woke up in normal health this morning. He had intercourse with his fiance and shortly afterward became acutely confused. His fiance reports that he was speaking clearly, but asking obvious questions about the day prior and the morning and repeating himself and just not making any sense. This lasted for about 35-40 minutes, resolving on the way to the hospital. He also reported some left hand numbness which he reports also resolved. At present, he is 100% back to baseline. Allergies Allergy/AdvReac Type Severity Reaction Status Date / Time No Known Allergies Allergy Verified 04/22/20 11:03 Home Medications Home Medications Medication Instructions Recorded Confirmed Type multivitamin 1 tab PO DAILY 12/08/18 04/22/20 History betamethasone, augmented 0.05 % 1 appln TOP BID PRN #50 gm 12/06/19 04/22/20 Rx topical ointment escitalopram oxalate 10 mg tablet 10 mg PO DAILY #90 tab 02/16/20 04/22/20 Rx lisinopril 20 mg tablet 20 mg PO QAM #90 tab 02/16/20 04/22/20 Rx atorvastatin 40 mg tablet 40 mg PO HS #90 tab 02/22/20 04/22/20 Rx levothyroxine 200 mcg tablet 200 mcg PO DAILY #90 tab 02/22/20 04/22/20 Rx amlodipine 2.5 mg PO DAILY 04/22/20 04/22/20 History pantoprazole 40 mg PO DAILY 04/22/20 04/22/20 History Past Med/Surg History Medical History Hyperlipidemia Hypertension Hypothyroidism Kidney stones Osteoarthritis Surgical History History of tonsillectomy Family History Son Crohn's disease Sister Hypertension Grandmother Myocardial infarction Denies family history of Ovarian cancer Prostate cancer Breast cancer Colorectal cancer Social History Smoking Status: Never smoker Second Hand Exposure: No; Hx Alcohol Use: Yes Alcohol type: beer Hx Substance Use: No Preferred Language: Khmer Communication Ability: Effective Visual Impairment: No Limitations Hearing Ability: Normal [place] Conservationist Required: No Beliefs That Will Affect Care: None marital status: Current Living Situation: Significant Other current occupational status: employed current occupation: Works at [employer] Other Information That Helps Us Care for You: No Feels Safe at Home: Yes Safety Concerns: Feels Safe At This Time Childhood Exposure to Second-Hand Smoke: No caffeine: Yes during the past year weight has: remained stable Dental Care, Regularly: Yes Physical Activity Frequency: Daily Seatbelt Use: always Sunscreen Use: No Assistive Devices: None Review of Systems Review of Systems: All systems reviewed & are unremarkable except as noted in HPI & below Physical Exam Constitutional: WD/WN, vitals as above Eyes: EOM intact bilaterally; no conjunctival abnormality ENMT: external ear and nose normal, oropharynx normal Neck: trachea midline, no thyromegaly normal visual inspection Respiratory: normal respiratory effort, lungs clear to auscultation no respiratory distress Cardiovascular: RRR, no murmur, no edema Gastrointestinal (Abdomen): Inspection/Auscultation: abdomen normal to inspection; abdomen not distended Musculoskeletal: no cyanosis or clubbing, extremities motor strength 5/5 Skin: no rashes, warm and dry Neurologic: moves all extremities and awake Psychiatric: Orientation: alert, oriented to person and cooperative Results & Data Results & Data ([facility]) Vital Signs (Past 12 Hours) Vital Signs Temp Pulse Resp BP Pulse Ox 04/22/20 10:31 88 144/103 H 96 04/22/20 10:02 36.7 C 102 H 20 188/101 H 96 Code Status & VTE Plan VTE Prophylaxis Plan VTE Prophylaxis will be ordered: Yes PG Care Time/CCT Total # of Minutes Spent Total Time Spent with Patient: Total time spent is greater than 50% in coordination of care (as documented) at patient's floor/unit and/or counseling patient: Coding Level of Care Code 74157 OBS Care - Level 3 Diagnoses Acute confusion R41.0 Hypertension I10 Hyperlipidemia E78.5 Hypothyroidism E03.9 GERD (gastroesophageal reflux disease) K21.9 DVT prophylaxis Z29.9
[2020-04-22] MEDS ORDERED: ASPIRIN CHEW 324 MG PO SCH (11:45)
[2020-04-22] MEDS ORDERED: ONDANSETRON INJ 2 MG/ML 2 ML VIAL IV PRN (12:07)
[2020-04-22] MEDS ORDERED: ACETAMINOPHEN 325 MG TAB PO PRN (12:07)
[2020-04-22] MEDS ORDERED: LORazepam 1 MG TAB PO SCH (12:45)
[2020-04-22 12:50] LABS: Thyroid Stimulating Hormone 0.098 uIu/ml (0.300-4.500)
[2020-04-22 13:02] LABS: T4 Free Thyroxine 1.32 ng/dl (0.8-1.6)
[2020-04-22 13:17] LABS: Estimated Average Glucose 97 mg/dl
--- NOTE | 2020-04-22 14:11 | Magnetic Resonance Report ---
MRI OF THE BRAIN WITHOUT CONTRAST CLINICAL HISTORY: Strokelike symptoms. COMPARISON STUDY: Noncontrast head CT dated 04/22/2020 FINDINGS: Sagittal T1, axial diffusion, proton density and T2 weighted axial, coronal FLAIR, and axial T1-weigh zakia images were acquired. No intra or extra-axial mass lesions are visualized Axial diffusion-weighted images reveal no evidence of acute or subacute infarction. There is no evidence of ventricular dilatation. Proton density T2-weighted and FLAIR images reveal no significant intraparenchymal signal abnormaliti es. There are no abnormal flow voids. There is pansinus mucosal disease. IMPRESSION: 1. No acute intracranial findings 2. No evidence of acute or subacute infarction 3. No evidence of intracranial mass on this noncontrast examination. ACT 112: Negative or not required by law. Electronically signed by: Patric Lazaro M.D. 04/22/2020 2:10 PM
[2020-04-22] MEDS: ASPIRIN 81 MG ECTAB PO SCH (14:26)
[2020-04-22] MEDS ORDERED: ATORVASTATIN 40 MG TAB PO SCH (21:00)
[2020-04-23] MEDS ORDERED: LEVOTHYROXINE SODIUM 200 MCG TABLET PO SCH (06:30)
[2020-04-23 06:37] LABS: Hematocrit (blood only) 43.8 % (42-52); Hemoglobin 15.5 g/dL (14.0-18.0); Mean Corpuscular Hemoglobin 32.4 pg (25-34); Mean Corpuscular Hgb Conc 35.4 g/dL (32-36); Mean Corpuscular Volume 91.4 fL (80-100); Platelet Count 224 K/uL (130-400); RDW Coefficient of Variation 12.3 % (11.5-14.5); RDW Standard Deviation 41.1 fL (36.4-46.3); Red Blood Count 4.79 M/uL (4.7-6.1); White Blood Count 5.91 K/uL (4.8-10.8)
[2020-04-23 06:56] LABS: BUN Creatinine Ratio 17.6 (10-20); Calcium 8.8 mg/dl (8.5-10.1); Creatinine Clr Calc Pharmacy 121.3 ml/min; Est GFR (African American) 106.2; Est GFR (Non-African American) 91.7; Magnesium 2.1 mg/dl (1.8-2.4); Potassium 4.1 mmol/L (3.5-5.1)
[2020-04-23] MEDS ORDERED: PANTOprazole 40 MG TAB PO SCH (09:00)
[2020-04-23] MEDS ORDERED: lisinopril 20 MG TAB PO SCH (09:00)
[2020-04-23] MEDS ORDERED: amLODIPine BESYLATE 5 MG TAB PO SCH (09:00)
[2020-04-23] MEDS ORDERED: MULTIVITAMIN TAB PO SCH (09:00)
[2020-04-23] MEDS ORDERED: ESCITALOPRAM OXALATE 10 MG TAB PO SCH (09:00)
[2020-04-23] MEDS: ASPIRIN 81 MG ECTAB PO SCH (09:49)
--- NOTE | 2020-04-23 09:59 | Neurology Consultation ---
Date of Consultation April 23, 2020 Assessment & Plan (1) Transient global amnesia: Probable episode of transient global amnesia. Resolved. Neurologically intact. Unremarkable evaluation. I explained the diagnosis of TGA directly to the patient this morning. TGA is more likely to occur in individuals 50 years of age and older and is often provoked by physical stress, sometimes sexual intercourse, which was a provoking factor in this patient's case. TGA is a benign condition and only rarely recurs. The underlying pathophysiology is not really known although may be due to a combination of stress, catecholamines, and transient blood flow reduction to the medial temporal lobes. TGA is not felt to be due to thromboembolic phenomena or epilepsy. There is no specific treatment for TGA and again, prognosis is favorable. Having TGA does not increase an individual's risk for dementia or other neurologic disease. Additional neurological evaluations are not immediately needed. He should continue to follow with his PCP for ongoing management of hypertension and other cardiov ascular risk factors. Please contact me if I may be of further assistance. History of Present Illness Reason for Consultation: episode of confusion Requesting Physician: Augie Egan MD Attending Physician: Elodia Stephens MD History of Present Illness The patient is a 54-year-old male who presented to the emergency department yesterday morning for an episode of acute amnesia that began immediately after having intercourse with his girlfriend. He was unable to recall events for a 24-hour timeframe. He was repeating himself and asking obvious questions about the day prior. His speech was clear and he was otherwise neurologically intact. The episode lasted for less than 1 hour and resolved although he continues to report some residual amnesia. He did complain of some associated numbness of the left hand which has resolved. He complains of a low-grade headache this morning. Past medical history notable for hypertension, and hyperlipidemia. No known history of stroke, TIA, epilepsy, or migraine. He works in maintenance at [employer] and does have some mild associated anxiety for which he is prescribed Lexapro. This issue has been stable. Allergies Allergy/AdvReac Type Severity Reaction Status Date / Time No Known Allergies Allergy Verified 04/22/20 11:03 Home Medications Home Medications Medication Instructions Recorded Confirmed Type multivitamin 1 tab PO DAILY 12/08/18 04/22/20 History betamethasone, augmented 0.05 % 1 appln TOP BID PRN #50 gm 12/06/19 04/22/20 Rx topical ointment escitalopram oxalate 10 mg tablet 10 mg PO DAILY #90 tab 02/16/20 04/22/20 Rx lisinopril 20 mg tablet 20 mg PO QAM #90 tab 02/16/20 04/22/20 Rx atorvastatin 40 mg tablet 40 mg PO HS #90 tab 02/22/20 04/22/20 Rx levothyroxine 200 mcg tablet 200 mcg PO DAILY #90 tab 02/22/20 04/22/20 Rx amlodipine 2.5 mg PO DAILY 04/22/20 04/22/20 History pantoprazole 40 mg PO DAILY 04/22/20 04/22/20 History Patient History Medical History Hyperlipidemia Hypertension Hypothyroidism Kidney stones Osteoarthritis Surgical History History of tonsillectomy Family History Son Crohn's disease Sister Hypertension Grandmother Myocardial infarction Denies family history of Ovarian cancer Prostate cancer Breast cancer Colorectal cancer Social History Smoking Status: Never smoker Second Hand Exposure: No; Hx Alcohol Use: Yes Alcohol type: beer Hx Substance Use: No Preferred Language: Yakut Communication Ability: Effective Visual Impairment: No Limitations Hearing Ability: Normal Dial Brusher Required: No Beliefs That Will Affect Care: None marital status: Current Living Situation: Significant Other current occupational status: employed current occupation: Works at [employer] [place] Feels Safe at Home: Yes Childhood Exposure to Second-Hand Smoke: No caffeine: Yes during the past year weight has: remained stable Dental Care, Regularly: Yes Physical Activity Frequency: Daily Seatbelt Use: always Sunscreen Use: No Assistive Devices: None Review of Systems Constitutional: no fever and no chills Eyes: no blind spots and no diplopia Ear, Nose, Mouth, Throat: no tinnitus and no hearing loss Respiratory: no cough and no dyspnea Cardiovascular: no chest pain and no palpitations Gastrointestinal: no nausea and no vomiting Genitourinary: no urinary incontinence Musculoskeletal: no myalgia Integumentary: no rash and no lesions Neurologic: as per Subjective / HPI, + headache(s) and + memory loss; no localized weakness, no loss of sensation, no tremor(s), no seizure-like activity and no syncope Psychiatric: as per Subjective / HPI and + anxiety Hematologic / Lymphatic: no easy bleeding and no easy bruising Exam (Neuro) Constitutional: well developed and well nourished; no acute distress Eyes: normal visual perez by confrontation, PERRL, normal accommodation and EOM intact bilaterally; no fundoscopic abnormality, no nystagmus and no papilledema Cardiovascular: Vessels: normal carotid upstroke; no carotid bruit Neurologic: Oriented to:: Person, Place and Time Memory: Short Term Intact and Remote Intact Attention: Span Intact and Concentration Intact Language: Naming Objects and Repeating Phrases Speech Fluency: negative Dysarthria Speech Aphasia: negative Aphasia Fund of Knowledge: Current Events, Past History and Vocabulary Cranial Nerves: Normal II (Visual perez full to confrontation, visual acuity normal), III, IV, (Pupils equal round reactive to light and accommodation, eye movements normal), V (Facial sensation intact), VII (There is no facial droop or weakness), VIII (Hearing intact), IX, X (Palate elevates to midline), XI (Shoulder shrug intact) and XII (Tongue protrudes to midline) Motor Strength: Normal Lower Extremities and Normal Upper Extremities; negative Pronator Drift Motor Tone: Normal Lower Extremities and Normal Upper Extremities Muscle Bulk/Involuntary Movements: No Involuntary Movements; negative Muscle Atrophy Sensation: Light Touch Intact, Pain/Temperature Intact, Vibration Intact and Proprioception Intact Coordination: Normal; negative Limited Balance, Dysdiadochokinesia, Finger-Nose Abnormal and Heel-Prince Abnormal Deep Tendon Reflexes: Rt Triceps: 2+, Lt Triceps: 2+, Rt Biceps: 2+, Lt Biceps: 2+, Rt Brachioradialis: 2+, Lt Brachioradialis: 2+, Rt Patellar: 2+, Lt Patellar: 2+, Rt Ankle: 2+ and Lt Ankle: 2+ Special Tests: negative Babinski Present Gait: Normal Station and Gait Results & Data ([facility]) Vital Signs (Past 12 Hours) Vital Signs Temp Pulse Pulse Resp BP Pulse Ox 04/23/20 08:00 66 04/23/20 07:39 36.7 C 60 18 143/81 H 93 04/23/20 04:00 36.4 C L 61 18 142/88 H 96 04/22/20 23:14 36.5 C 56 L 20 152/77 H 96 Laboratory Results WBC 5.91, hemoglobin 15.5, hematocrit 43.8, platelet count 224, sodium 140, potassium 4.1, BUN 17, creatinine 0.95, glucose 117, hemoglobin A1c 5.0, calcium 8.8, magnesium 2.1, AST 48, ALT 127, TSH 0.098, free T4 1.32 Diagnostic Findings Brain MRI negative for acute or subacute stroke. No significant abnormalities. CT of the head as well as CT angiography of the head and neck unremarkable. I reviewed the images as well as the radiologist interpretation of these tests. An echocardiogram reveals mild concentric left ventricular hypertrophy, normal left ventricular systolic function. An electrocardiogram reveals a normal sinus rhythm. Coding Level of Care Code 22760 Inpt Consult Level 4 Diagnoses Transient global amnesia G45.4
--- NOTE | 2020-04-23 11:56 | Discharge Summary ---
Date of Service April 23, 2020 Admission HPI Per Admitting Provider 54yo M w/ hx of HTN and HLD who presents for acute confusion. The patient had a headache last night and thought he was just a bit dehydrated. He drank some water, and it went away. He woke up in normal health this morning. He had intercourse with his fiance and shortly afterward became acutely confused. His fiance reports that he was speaking clearly, but asking obvious questions about the day prior and the morning and repeating himself and just not making any sense. This lasted for about 35-40 minutes, resolving on the way to the hospital. He also reported some left hand numbness which he reports also resol yessy. At present, he is 100% back to baseline. Principal Diagnosis Transient global amnesia Discharge Exam Constitutional WD/WN, vitals as above Eyes PERRL, conjunctivae normal, anicteric sclerae ENMT external ear and nose normal, oropharynx normal Neck trachea midline, no thyromegaly Respiratory normal respiratory effort, lungs clear to auscultation Cardiovascular RRR, no murmur, no edema Chest (Breasts) Chest: normal inspection of chest Gastrointestinal (Abdomen) normal bowel sounds, soft, nontender, no hepatosplenomegaly Musculoskeletal Extremities: extremities normal to inspection; no cyanosis and no clubbing Skin no rashes, warm and dry Neurologic PERRL, EOMI, accommodation nl, no face palsy, no dysarthria CN's II-XI intact bilaterally, moves all extremities and awake; no focal motor deficits Psychiatric A+Ox3, euthymic affect Lymphatic no lymphedema Discharge Data Allergies Allergy/AdvReac Type Severity Reaction Status Date / Time No Known Allergies Allergy Verified 04/22/20 11:03 Consultations 04/22/20 11:10 ED Decision to Admit Stat 04/22/20 12:07 Consult Neurology Routine Ordered Studies 04/22/20 10:10 CT angio head w con Stat CT angio neck with con Stat CT head/brain wo con Stat 04/22/20 11:15 MR brain wo con Routine Echocardiogram Hospital Course (1) Acute confusion: Neurology has assessed and agrees with diagnosis of transient global amnesia. He remains fully resolved at this time. [place] tele-stroke recommend admission for further work-up. - MRI brain negative for stroke or intracranial lesion CT angiogram head and neck without significant stenoses or aneurysm. Does have 50% narrowing of the left common carotid artery due to kinking but this is not clinically significant. Unlikely that this will ever happen again as per neurology. No specific treatment no further neurological evaluation needed. Stable for discharge home (2) Hypertension: BP was high in the ED, but has since normalized - Continue home amlodipine & lisinopril continue good blood pressure control given mildly dilated thoracic aorta (3) Hyperlipidemia: - Continue high-dose statin (4) Hypothyroidism: TSH was 0.12 on 04/07/2020. He reports he lowered his home dose from 225 mcg to 200 mcg daily. - Continue home levothyroxine 200 mcg - Repeat TSH here remains low at 0.09 Continue follow-up with PCP and consider repeat TSH again in a few weeks and may need further lowering of his dose of medication (5) GERD (gastroesophageal reflux disease): - Continue PPI (6) Dilated aortic root: Noted to be 4.1 cm on echocardiogram Good blood pressure control encouraged Follow-up with PCP and may need surveillance echocardiogram in 1 year (7) Elevated LFTs: Total bilirubin and AST and ALT mildly elevated and have been in the past Given the patient is overweight/obese, suspect fatty liver although no imaging in the liver has been done. Recommended follow-up with PCP for possible liver imaging and follow-up LFTs Encourage patient to have low carbohydrate diet and weight loss (8) DVT prophylaxis: SCDs - Low DVT risk per admission calculator Disposition-stable for discharge to home Total Time Total Time Spent Total Time Spent (In Minutes): 35 minutes Total Time Includes: Examination of the Patient, Discharge Planning and Medication Reconciliation Discharge Plan Discharge Items Patient Disposition: Home - Self-Care Reason For Visit: CONFUSION Discharge Diagnosis: Transient global amnesia Condition on Discharge: Good Activity: Resume your previous activity Non-emergency contact: Primary Care Provider Call non-emergency contact if: your symptoms worsen Follow-up/Referrals: Ty Mendiola III, MD [Primary Care Provider] - (Please follow-up within 1 week after discharge) Diet: Heart Healthy Diet Comment: Low carbohydrate diet Addtl Attending Provider Instructions: You were admitted with temporary confusion thought to be secondary to a condition called transient global amnesia (TGA). Fortunately, this usually does not happen twice and once lifetime. There is no specific treatment for this. You had an MRI of the brain which showed no stroke or brain tumors. You had a CT angiogram of the head and neck which showed no blockages or aneurysms. You had no evidence of any infections or trouble with your kidneys or electrolytes. Your thyroid function is still mildly hyperactive. Please follow-up with your primary care physician regarding this as well as you may need further adjustment in your levothyroxine. You had an echocardiogram of the heart which did show a mildly dilated root of the aorta. The treatment for this would be good blood pressure control and continued surveillance with your primary care physician with a repeat echocardiogram periodically. You had no abnormal heart rhythms while you are here. Your liver enzymes are very mildly elevated and have been in the past as well. This is most likely secondary to fatty liver. Please follow-up with your primary care physician on this and follow a low carbohydrate diet to encourage weight loss. You are stable for discharge to home. Please follow-up with your primary care physician within 1 week. Pending Studies at Discharge: No Stand-Alone Forms: My [facility] Medications and DC Order Prescriptions: Continued atorvastatin 40 mg tablet 40 mg PO HS Qty: 90 RF: 3 levothyroxine 200 mcg tablet 200 mcg PO DAILY Qty: 90 RF: 3 betamethasone, augmented [Diprolene (augmented)] 0.05 % ointment 1 appln TOP BID PRN (Reason: psoriasis) Qty: 50 RF: 0 escitalopram oxalate 10 mg tablet 10 mg PO DAILY Qty: 90 RF: 3 lisinopril 20 mg tablet 20 mg PO QAM Qty: 90 RF: 3 multivitamin [Daily Multi-Vitamin] tablet 1 tab PO DAILY RF: 0 amlodipine 2.5 mg tablet 2.5 mg PO DAILY RF: 0 pantoprazole 40 mg tablet,delayed release (DR/EC) 40 mg PO DAILY RF: 0 Discharge Orders: Discharge Order (Routine); Ordered 04/23/20 Ordered By: Elodia Stephens Admission Data Admit Date/Time: 04/22/20 11:15 Attending Provider: Elodia Stephens Admit Provider: Augie Egan Primary Care Provider: Ty Mendiola III Other Providers: Augie Egan ; Mxa Pepper Coding Level of Care Code 04770 OBS Care - Discharge Diagnoses Acute confusion R41.0 Hypertension I10 Hyperlipidemia E78.5 Hypothyroidism E03.9 GERD (gastroesophageal reflux disease) K21.9 Dilated aortic root I77.810 Elevated LFTs R79.89 DVT prophylaxis Z29.9
--- NOTE | 2020-04-23 12:23 | Electrocardiogram Report ---
Test Reason : Blood Pressure : / mmHG Vent. Rate : 089 BPM Atrial Rate : 089 BPM P-R Int : 150 ms QRS Dur : 104 ms QT Int : 364 ms P-R-T Axes : 053 017 030 degrees QTc Int : 442 ms Normal sinus rhythm Normal ECG When compared with ECG of 13-JUL-2018 12:33, Vent. rate has increased BY 30 BPM Confirmed by Pepito Ramirez ([id number] on 04/23/2020 12:23:02 PM Referred By: REFERRED SELF Confirmed By:Pepito Ramirez
== END 2020-04-23 12:08 | disposition home or self-care (01) ==
LOC: ED 09:59 → 2N 09:59 → SUATTDRO 11:15 → 2N 11:45